=== PATIENT | male | born 1950 | race Caucasian/White ===

== ENCOUNTER 2017-01-11 23:50 | Inpatient (IN) | payer MEDICARE ==
[~2017-01-11] VITALS: Ht 189.2 cm; Wt 96.5 kg
[~2017-01-11 23:50] MED LIST: METO100T PO; ROBA750T3 PO; ULTR50TA PO
[2017-01-11 23:51] VITALS: BP_SYST 210; PULSE 160; RESP 18; TEMP 99.5; O2SAT 98
[2017-01-11 23:57] VITALS: PULSE 130; RESP 18; O2SAT 98
[2017-01-12] VITALS (17 sets, daily range): BP systolic 132–194; BP diastolic 62–169; PULSE 72–148; RESP 13–22; TEMP 98–98.6; O2SAT 95–99
[2017-01-12] MEDS ORDERED: TRAM50TA PO (00:08)
[2017-01-12] MEDS ORDERED: GABA600T PO (00:08)
[2017-01-12] MEDS ORDERED: DILTIAZEM INJ 125 MG in SODIUM CHLORIDE 0.9% INJ 100 ML IV SCH (00:15)
[2017-01-12] MEDS ORDERED: SODIUM CHLORIDE 0.9% FLUSH 10 ML FLUSH IVF PRN (00:15)
[2017-01-12] MEDS ORDERED: DILTIAZEM HCL 25 MG/5 ML VIAL IV ONE (00:15)
[2017-01-12] MEDS ORDERED: SODIUM CHLORID 0.9% 500 ML INJ 500 ML IV ONE (00:15)
[2017-01-12 00:44] LABS: AUTOMATED NEUTROPHIL # 7.3 TH/MM3 (1.8-7.7); BASOPHIL % 0.5 % (0.0-2.0); EOSINOPHIL # 0.1 TH/MM3 (0-0.4); EOSINOPHIL % 1.3 % (0.0-4.0); HEMATOCRIT 34.6 % (39.0-51.0); HEMO FLAGS DIFF FINAL; LYMPH % 9.3 % (9.0-44.0); LYMPHOCYTE # 0.8 TH/MM3 (1.0-4.8); MEAN CORPUSCULAR HEMOGLOBIN 21.6 PG (27.0-34.0); MEAN CORPUSCULAR HGB CONC 31.3 % (32.0-36.0); NEUT % 81.9 % (16.0-70.0); PLATELET COUNT 198 TH/MM3 (150-450); RED BLOOD COUNT 5.01 MIL/MM3 (4.50-5.90); RED CELL DISTRIBUTION WIDTH 22.4 % (11.6-17.2); WHITE BLOOD COUNT 8.9 TH/MM3 (4.0-11.0)
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
[2017-01-12 00:53] LABS: APTT (PATIENT) 39.4 SEC (24.3-30.1); INTERNATIONAL NORMALIZED RATIO 1.5 RATIO; PROTHROMBIN TIME - PATIENT 16.7 SEC (9.8-11.6)
[2017-01-12 00:54] LABS: ALT (GPT) 89 U/L (12-78); ANION GAP 11 MEQ/L (5-15); AST (GOT) 71 U/L (15-37); BICARBONATE 23.7 MEQ/L (21.0-32.0); BLOOD UREA NITROGEN 22 MG/DL (7-18); CHLORIDE 101 MEQ/L (98-107); GLOMERULAR FILTRATION RATE 35 ML/MIN (>89); MAGNESIUM 1.8 MG/DL (1.5-2.5); SODIUM (NA) 136 MEQ/L (136-145)
--- NOTE | 2017-01-12 01:03 | RADRPT ---
EXAM DATE/TIME: 01/12/2017 00:28 [facility] COMPARISON: CHEST SINGLE AP, April 17, 2013, 14:43. INDICATIONS : Shortness of breath, weakness for several days. MEDICAL HISTORY : None. SURGICAL HISTORY : None. ENCOUNTER: Initial ACUITY: 1 day PAIN SCORE: 0/10 LOCATION: Bilateral chest FINDINGS: Mild to moderate cardiomegaly present, worse on before. There is basilar predominant bilateral parenc hymal consolidation, some of which probably represents pulmonary edema. Superimposed pneumonia possib le, especially right base. No large effusion seen. No pneumothorax. CONCLUSION: Cardiomegaly with probably at least mild failure. Potentially superimposed pneumonia of the right bas e. Will Campbell MD on January 12, 2017 at 1:00 Board Certified Radiologist. This report was verified electronically.
[2017-01-12 01:04] LABS: ALKALINE PHOSPHATASE 73 U/L (45-117); CREATINE KINASE 127 U/L (39-308); TOTAL BILIRUBIN ADULT 0.8 MG/DL (0.2-1.0)
--- NOTE | 2017-01-12 01:09 | RADRPT ---
EXAM DATE/TIME: 01/12/2017 00:51 [facility] COMPARISON: CT BRAIN W/O CONTRAST, April 17, 2013, 14:10. INDICATIONS : Syncope RADIATION DOSE: 42.06 CTDIvol (mGy) MEDICAL HISTORY : Hypertension. SURGICAL HISTORY : None. ENCOUNTER: Initial ACUITY: 1 day PAIN SCALE: 0/10 LOCATION: cranial TECHNIQUE: Multiple contiguous axial images were obtained of the head. Using automated exposure control and adj ustment of the mA and/or kV according to patient size, radiation dose was kept as low as reasonably a chievable to obtain optimal diagnostic quality images. DICOM format image data is available electro nically for review and comparison. FINDINGS: CEREBRUM: The ventricles are normal for age. No evidence of midline shift, mass lesion, hemorrhage or acute in farction. No extra-axial fluid collections are seen. POSTERIOR FOSSA: The cerebellum and brainstem are intact. The 4th ventricle is midline. The cerebellopontine angle i s unremarkable. EXTRACRANIAL: The visualized portion of the orbits is intact. SKULL: The calvaria is intact. No evidence of skull fracture. CONCLUSION: No acute intracranial abnormality. Will Campbell MD on January 12, 2017 at 1:07 Board Certified Radiologist. This report was verified electronically.
[2017-01-12 01:16] LABS: CKMB 2.3 NG/ML (0.5-3.6)
[2017-01-12] MEDS ORDERED: AZITHROMYCIN INJ 500 MG in SODIUM CHLOR 0.9% 250 ML INJ 250 ML IV ONE (02:00)
[2017-01-12] MEDS ORDERED: cefTRIAXone INJ 1,000 MG in SODIUM CHLORIDE 0.9% INJ 100 ML IV ONE (02:00)
[2017-01-12] MEDS ORDERED: NALOXONE HCL 0.4 MG/ML AMP IV PRN (02:45)
[2017-01-12] MEDS ORDERED: FUROSEMIDE 40 MG/4 ML VIAL IV PUSH ONE ×2 (02:45)
[2017-01-12] MEDS ORDERED: LABETALOL HCL 100 MG/20 ML VIAL IV PUSH ONE (02:45)
[2017-01-12] MEDS ORDERED: NITROGLYCERIN 2% OINT 1 GM PACKET TOPICAL ONE (02:45)
[2017-01-12] MEDS ORDERED: SODIUM CHLORIDE 0.9% FLUSH 10 ML FLUSH IV FLUSH PRN (02:45)
[2017-01-12] MEDS: SODIUM CHLORIDE 0.9% FLUSH 10 ML FLUSH IV FLUSH SCH ×2 (07:51→21:19)
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
--- NOTE | 2017-01-12 09:34 | MB ---
cc: KELLIE PRESCOTT DATE OF 1950 DATE OF CONSULTATION January 12, 2017 REASON FOR CONSULTATION Atrial fibrillation with RVR. HISTORY OF PRESENT ILLNESS 66-year-old male with past medical history significant for hypertension, gout, neuropathy, sciatica who presented to the hospital for evaluation of two days of vague complaints of generalized weakness, lightheadedness and near-syncopal episode. The patient was found to be in atrial fibrillation with RVR. According to the patient, his diagnosis is new and he denies fevers, chills, nausea, vomiting, diarrhea, urinary symptoms, neurologic symptoms, alcohol usage. He does report having some shortness of breath with exertion for a couple of days; however, no palpitations. The patient was admitted to the Intensive Care Unit. He was started on a Cardizem drip. No anticoagulation was started, even patient refused and reports he cannot take blood thinners. REVIEW OF SYSTEMS Negative except for what is mentioned in the HPI. PAST MEDICAL HISTORY 1. Hypertension. 2. Gout. 3. Neuropathy. 4. Sciatica. 5. Chronic thigh pain. PAST SURGICAL HISTORY 1. Tonsillectomy. 2. Brain surgery. 3. Strabismus. SOCIAL HISTORY Denies alcohol, tobacco or illicit drug use. ALLERGIES No known drug allergies. HOME MEDICATIONS 1. Gabapentin 600 mg q.i.d. 1. Tramadol 50 mg p.o. q.6 h p.r.n. PHYSICAL EXAMINATION VITAL SIGNS: Temperature 98, heart rate 92, pulse 20, blood pressure 132/88, O2 sat 99% on room air. GENERAL: Awake, alert and oriented x 3, in no acute distress. NECK: No JVD, no carotid bruits. HEART: Irregularly irregular. No murmurs, rubs or gallops. LUNGS: Clear to auscultation bilaterally. ABDOMEN: Soft, nontender, nondistended with positive bowel sounds. EXTREMITIES: No cyanosis or edema. Pulses throughout. DATA CBC: Hemoglobin 10, hematocrit 34, platelet count 198. INR 1.5. Sodium 136, potassium 4.0, BUN 22, creatinine 1.93. Troponin 0.32. BNP 1403. TSH 1.7. Lipase 147. Microbiology: Blood cultures pending. CHEST X-RAY Cardiomegaly with a superimposed pneumonia on the right base. CT HEAD No acute intracranial abnormality. EKG Atrial fibrillation with LVH by voltage. Nonspecific ST changes. ASSESSMENT AND PLAN 66-year-old male presenting with vague complaints of generalized weakness and worsening dyspnea on exertion, found to be in atrial fibrillation with RVR. RVR has been controlled with a Cardizem drip. He remains hemodynamically stable with no active cardiac complaints. He is being worked up for infection and his renal function has deteriorated. Regarding his atrial fibrillation, his rate is better controlled now. At this I will try to wean off the Cardizem drip and start p.o. Cardizem. His CHADS-VASC score is 1 for which aspirin will be strongly recommended to decrease his risk of stroke. However, after a long conversation with the patient, the patient refuses to take blood thinners. He reports he has a low propensity to bleed. In regards to his mildly elevated troponins, it is most likely due to his acute kidney injury, thus no invasive ischemic workup will be recommended at this time. RECOMMENDATIONS 1. Wean Cardizem drip. 2. Start p.o. Cardizem . 3. Get a 2-D echocardiogram. 4. The patient refuses oral chronic anticoagulation. Thank you for the opportunity to take part in the care of this patient. MD TONYA Pathak/IRINA /9:02 AM /9:24 AM MTDShivam
[2017-01-12] MEDS: METOPROLOL TARTRATE 50 MG TAB PO SCH ×2 (09:36→21:19)
[2017-01-12] MEDS: DILTIAZEM HCL 30 MG TAB PO SCH ×4 (09:36→21:18)
[2017-01-12] MEDS: traMADol HCL 50 MG TAB PO SCH ×3 (09:37→21:19)
[2017-01-12] MEDS: GABAPENTIN 300 MG CAP PO SCH ×3 (09:37→18:00)
--- NOTE | 2017-01-12 09:45 | RADRPT ---
EXAM DATE/TIME: 01/12/2017 09:06 [facility] COMPARISON: No previous studies available for comparison. INDICATIONS : Increased BUN/Creatinine. MEDICAL HISTORY : Hypertension. Deep venous thrombosis. Gout. SURGICAL HISTORY : Tonsillectomy. ENCOUNTER: Initial ACUITY: 1 day PAIN SCORE: 3/10 LOCATION: Bilateral flank MEASUREMENTS: RIGHT KIDNEY: 11.9 x 6.4 x 5.9 cm LEFT KIDNEY: 12.3 x 6.5 x 5.4 cm FINDINGS: RIGHT KIDNEY: There is a 6 mm echogenic focus in the upper pole the right kidney which could be a small nonobstruct ing stone. There multiple small cysts present. No evidence of hydronephrosis. Cortical thickness and echogenicity is otherwise within normal limits throughout. LEFT KIDNEY: Multiple cysts are present, largest a 5 cm cyst arising in the lateral lower pole. No evidence of hyd ronephrosis. Normal cortical thickness and echogenicity otherwise present. BLADDER: Moderate enlargement of the prostate with impression on the bladder base. No definite bladder wall th ickening CONCLUSION: No hydronephrosis. Will Duval MD on January 12, 2017 at 9:41 Board Certified Radiologist. This report was verified electronically.
--- NOTE | 2017-01-12 09:54 | EKG ---
Date Performed: 01/11/2017 Time Performed: 23:58:38 PTAGE: 66 years EKG: ATRIAL FIBRILLATION WITH RAPID VENTRICULAR RESPONSE LVH with repolarization changes Atrial fibrillation is new from the prior tracing. Abnormal ECG PREVIOUS TRACING 04/17/2003 13.57.26 DOCTOR: Nash Harris Interpretating Date/Time 01/12/2017 09:49:45
--- NOTE | 2017-01-12 09:57 | EKG ---
Date Performed: 01/12/2017 Time Performed: 06:47:09 PTAGE: 66 years EKG: ATRIAL FIBRILLATION with controlled ventricular rate LVH with repolarization abnormality Ve ntricular rate is better controlled since prior tracing. ABNORMAL ECG PREVIOUS TRACING : 04/17/2013 13.57 DOCTOR: Nash Harris Interpretating Date/Time 01/12/2017 09:51:28
--- NOTE | 2017-01-12 16:03 | ECHRPT ---
Indication: HEART FAILURE CONCLUSIONS There is a global LV dysfunction with an EF of 30%. The left atrial size is moderately dilated. Moderate mitral valve regurgitation. Moderate tricuspid regurgitation. There is estimated moderate pulmonary hypertension present (range 50-60 mmHg). BP: 139 / 89 HR: 89 Rhythm: Sinus MEASUREMENTS (Male / Female) Normal Values Technical Quality:Fair 2D ECHO LV Diastolic Diameter PLAX 5.2 cm 4.2 - 5.9 / 3.9 - 5.3 cm LV Systolic Diameter PLAX 4.5 cm IVS Diastolic Thickness 1.3 cm 0.6 - 1.0 / 0.6 - 0.9 cm LVPW Diastolic Thickness 1.3 cm 0.6 - 1.0 / 0.6 - 0.9 cm LV Relative Wall Thickness 0.5 LVOT Diameter 2.2 cm Aortic Root Diameter 3.5 cm LA Systolic Diameter LX 5.1 cm 3.0 - 4.0 / 2.7 - 3.8 cm LA Volume Index 68.5 cm/m 16 - 28 cm/m M-MODE AV Cusp Separation MM 2.1 cm DOPPLER AV Peak Velocity 107.7 cm/s AV Peak Gradient 4.6 mmHg AV Mean Gradient 2.7 mmHg AV Velocity Time Integral 18.3 cm LVOT Peak Velocity 58.6 cm/s LVOT Peak Gradient 1.4 mmHg LVOT Velocity Time Integral 9.4 cm LVOT Cardiac Index 1414.0 cm/minm AV Area Cont Eq vti 2.0 cm AV Area Cont Eq pk 2.1 cm Mitral E Point Velocity 99.1 cm/s LV E' Lateral Velocity 9.0 cm/s Mitral E to LV E' Lateral Ratio 11.0 LV E' Septal Velocity 4.8 cm/s Mitral E to LV E' Septal Ratio 20.7 TR Peak Velocity 323.0 cm/s TR Peak Gradient 41.7 mmHg PV Peak Velocity 32.1 cm/s PV Peak Gradient 0.4 mmHg FINDINGS LEFT VENTRICLE There are findings consistent with hypertrophic cardiomyopathy. There is a global LV dysfunction wit h an EF of 30 to 40%. There is mild to moderate LVH. This study was not technically sufficient to allow f or evaluation of left ventricular diastolic function. LEFT ATRIUM The left atrial size is moderately dilated. Bi-Plane LA measurements 68 ml/m2 MITRAL VALVE Structurally normal mitral valve. Moderate mitral valve regurgitation. AORTIC VALVE Aortic valve sclerosis is present. Trace aortic valve regurgitation. No aortic valve stenosis. TRICUSPID VALVE Structurally normal tricuspid valve. There is moderate tricuspid regurgitation. There is estimated moderate pulmonary hypertension present (range 50-60 mmHg). c Donis Agrawal MD (Electronically Signed) Final Date:12 January 2017 16:01
[2017-01-13] VITALS (11 sets, daily range): BP systolic 127–144; BP diastolic 69–102; PULSE 84–112; RESP 16–21; TEMP 98.2–100; O2SAT 96–99
[2017-01-13] MEDS: traMADol HCL 50 MG TAB PO SCH ×4 (03:48→22:11)
[2017-01-13 06:31] LABS: POTASSIUM 4.6 MEQ/L (3.5-5.1)
[2017-01-13 06:45] LABS: AUTOMATED NEUTROPHIL # 5.9 TH/MM3 (1.8-7.7); BASOPHIL % 0.5 % (0.0-2.0); EOSINOPHIL # 0.3 TH/MM3 (0-0.4); EOSINOPHIL % 4.1 % (0.0-4.0); HEMATOCRIT 31.8 % (39.0-51.0); LYMPH % 15.6 % (9.0-44.0); LYMPHOCYTE # 1.3 TH/MM3 (1.0-4.8); MEAN CELL VOLUME 68.1 FL (80.0-100.0); MEAN CORPUSCULAR HGB CONC 30.8 % (32.0-36.0); MONO % 7.8 % (0.0-8.0); PLATELET COUNT 161 TH/MM3 (150-450); RED BLOOD COUNT 4.67 MIL/MM3 (4.50-5.90); RED CELL DISTRIBUTION WIDTH 22.4 % (11.6-17.2); WHITE BLOOD COUNT 8.1 TH/MM3 (4.0-11.0)
[2017-01-13 07:23] LABS: HEMO FLAGS AUTO DIFF
[2017-01-13 07:39] LABS: PLATELET ESTIMATE SMEAR NORMAL (NORMAL); PLATELET MORPHOLOGY ENLARGED (NORMAL); SCAN/DIFF AUTO DIFF CONFIRMED
[2017-01-13] MEDS: GABAPENTIN 300 MG CAP PO SCH ×3 (08:36→18:00)
[2017-01-13] MEDS: DILTIAZEM HCL 30 MG TAB PO SCH ×4 (08:36→22:11)
[2017-01-13] MEDS: METOPROLOL TARTRATE 50 MG TAB PO SCH (08:37)
[2017-01-13] MEDS: SODIUM CHLORIDE 0.9% FLUSH 10 ML FLUSH IV FLUSH SCH ×2 (08:37→22:12)
--- NOTE | 2017-01-13 09:12 | HHI.PR ---
Subjective Remarks Follow-up for atrial fibrillation with RVR Patient heart rate has been control at that this morning when it went up to the 120s. He is getting his medication soon. Patient denied any fatigue, chest pain, shortness of breathing, palpitation or lightheadedness or dizziness. Patient is asking about being on digoxin. Otherwise he has no other complaints. His nurse is at the bedside. Objective Vitals Vital Signs Date Time Temp Pulse Resp B/P Pulse Ox O2 Delivery O2 Flow Rate FiO2 01/13/17 08:52 98 Nasal Cannula 2.00 01/13/17 06:00 112 01/13/17 04:00 107 01/13/17 04:00 98.4 107 19 144/76 98 01/13/17 02:00 96 01/13/17 00:00 84 01/12/17 22:00 105 01/12/17 20:00 93 01/12/17 20:00 98.2 93 16 144/88 99 01/12/17 19:59 95 Nasal Cannula 2.00 01/12/17 18:53 89 01/12/17 16:00 98.0 79 20 136/89 99 01/12/17 16:00 72 01/12/17 14:45 98 01/12/17 14:00 89 01/12/17 12:00 89 01/12/17 12:00 98.6 92 20 137/62 99 01/12/17 10:00 89 I/O 01/12/17 01/12/17 01/12/17 01/13/17 01/13/17 01/13/17 07:00 15:00 23:00 07:00 15:00 23:00 Intake Total 147 ml 620 ml 300 ml 240 ml Output Total 300 ml 500 ml 400 ml 100 ml Balance -153 ml 120 ml -100 ml 140 ml Intake Oral 100 ml 600 ml 300 ml 240 ml IV Total 47 ml 20 ml Output Urine Total 300 ml 500 ml 400 ml 100 ml # Bowel Movements 0 0 2 1 Result Diagram: 01/13/1744201/13/17442 Objective Remarks GENERAL: in NAD CARDIOVASCULAR: Irregular rate and irregular rhythm without murmurs, gallops, or rubs. RESPIRATORY: Breath sounds equal bilaterally. No accessory muscle use. GASTROINTESTINAL: Abdomen soft, non-tender, nondistended. MUSCULOSKELETAL: No cyanosis, or edema. BACK: Nontender without obvious deformity. No CVA tenderness. Medications and IVs Current Medications Sodium Chloride 500 ml @ 500 mls/hr BOLUS ONCE IV Last administered on 00:45; Start 01/12/17 at 00:15; Stop 01/12/17 at 01:14; Status DC Diltiazem HCl/ Sodium Chloride (Cardizem Inj/NS Inj) 125 ml @ 0 mls/hr TITRATE IV Last administered on 01/12/17 01:23; Start 01/12/17 at 00:15 Sodium Chloride (NS Flush) 2 ml UNSCH PRN IVF FLUSH AFTER USING IV ACCESS; Start 01/12/17 at 00:15; Stop 01/12/17 at 02:43; Status DC Diltiazem HCl 20 mg 20 mg ONCE ONCE IV Last administered on 01/12/17 00:46; Start 01/12/17 at 00:15; Stop 01/12/17 at 00:20; Status DC Ceftriaxone Sodium 1000 mg/ Sodium Chloride 100 ml @ 200 mls/hr ONCE ONCE IV Last administered on 01/12/17 02:26; Start 01/12/17 at 02:00; Stop 01/12/17 at 02:29; Status DC Azithromycin/ Sodium Chloride (Zithromax Inj/ NS 250 ml Inj) 250 ml @ 250 mls/ hr ONCE ONCE IV Last administered on 01/12/17 02:54; Start 01/12/17 at 02:00 ; Stop 01/12/17 at 02:59; Status DC Labetalol HCl (Trandate Inj) 5 mg ONCE ONCE IV PUSH Last administered on 02:55; Start 01/12/17 at 02:45; Stop 01/12/17 at 02:46; Status DC Furosemide (Lasix Inj) 40 mg ONCE ONCE IV PUSH Last administered on 01/12/17 02:54; Start 01/12/17 at 02:45; Stop 01/12/17 at 02:46; Status DC Nitroglycerin (Nitroglycerin 2% Oint) 1 inch ONCE ONCE TOPICAL Last administered on 01/12/17 02:55; Start 01/12/17 at 02:45; Stop 01/12/17 at 02:46 ; Status DC Sodium Chloride (NS Flush) 2 ml UNSCH PRN IV FLUSH FLUSH AFTER USING IV ACCESS ; Start 01/12/17 at 02:45 Sodium Chloride (NS Flush) 2 ml BID IV FLUSH Last administered on 01/13/17 08: 37; Start 01/12/17 at 09:00 Naloxone HCl (Narcan Inj) 0.4 mg UNSCH PRN IV SEE LABEL COMMENTS; Start at 02:45 Furosemide (Lasix Inj) 40 mg ONCE ONCE IV PUSH ; Start 01/12/17 at 02:45; Stop 01/12/17 at 02:46; Status DC Metoprolol Tartrate (Lopressor) 50 mg Q12HR PO Last administered on 01/13/17 08:37; Start 01/12/17 at 09:00 Diltiazem HCl (Cardizem) 30 mg QID PO Last administered on 01/13/17 08:36; Start 01/12/17 at 09:00 Tramadol HCl (Ultram) 50 mg Q6H PO Last administered on 01/13/17 08:36; Start 01/12/17 at 10:00 Gabapentin (Neurontin) 600 mg TID PO Last administered on 01/13/17 08:36; Start 01/12/17 at 09:15 A/P Assessment and Plan 66-year-old male past medical history of hypertension, hyperlipidemia type I, peripheral neuropathy, and noncompliance who presented with fatigue due to atrial fibrillation with RVR Atrial fibrillation with RVR -New-onset. Patient does not report any history of atrial fibrillation but he is a poor historian. Only symptom is fatigue. -Labs and imaging reviewed significant for mild failure, elevated BNP, and mild elevated troponin 0.3 to. TSH WNL. -Echo showed global left ventricular dysfunction with ejection fraction of 30%, moderate mitral/tricuspid valve regurgitation, moderate pulmonary hypertension. --s/p cardizem gtt. patient was put on Cardizem by newscast director. He is also on metoprolol. Continue management per newscast director. -Patient refused any aspirin or anticoagulation due to a questionable bleeding disorder. His INR is 1.5. Cardiomyopathy/systolic heart failure with ejection fraction of 30%/pulmonary hypertension -Management per newscast director. -Looks like patient has chronic kidney disease. May consider adding an ARB pending recommendations from newscast director. Renal insufficiency -Unsure if this is acute, chronic, or acute on chronic. There is no baseline for comparison. -Today creatinine has been stable. Most likely this is chronic renal disease. -Renal ultrasound is negative for any acute disease process. -Strict ins and outs. Continue to monitor. -Avoid nephrotoxins. Peripheral neuropathy/chronic sciatica pain -Continue home medication tramadol and gabapentin. Hypertension, uncontrolled -Patient is noncompliant medication. -He is on metoprolol at home. Continue metoprolol. Mild elevated LFTs -Pending LFTs today. Since patient's INR is 1.5. We will get a liver ultrasound. DVT prophylaxis -SCDs. Discharge Planning There are no beds available in the [facility]. Patient can be transferred to Med/Surg with telemetry since he is off the Cardizem drip. d/w patient's nurse at bedside. Stacy Jones MD Jan 13, 2017 09:12
[2017-01-13 10:28] LABS: INDIRECT BILIRUBIN 0.2 MG/DL (0.0-0.8); TOTAL BILIRUBIN ADULT 0.4 MG/DL (0.2-1.0)
[2017-01-13] MEDS: RAMIPRIL 1.25 MG CAP PO SCH (10:45)
--- NOTE | 2017-01-13 10:47 | PD.CARD.PN ---
Subjective Subjective Remarks off cardizem still on afib, rate controlled no cv complaints decrease lv systolic function on echo Objective Medications Current Medications Medications (Trade) Dose Ordered Sig/Royce Route Start Time Stop Time Status Last Admin (Cardizem Inj/NS Inj) 125 ml @ 0 mls/hr TITRATE IV 01/12/17 00:15 01/12/17 01:23 (NS Flush) 2 ml UNSCH PRN IV FLUSH 01/12/17 02:45 (NS Flush) 2 ml BID IV FLUSH 01/12/17 09:00 01/13/17 08:37 (Narcan Inj) 0.4 mg UNSCH PRN IV 01/12/17 02:45 (Lopressor) 50 mg Q12HR PO 01/12/17 09:00 01/13/17 08:37 (Cardizem) 30 mg QID PO 01/12/17 09:00 01/13/17 08:36 (Ultram) 50 mg Q6H PO 01/12/17 10:00 01/13/17 08:36 (Neurontin) 600 mg TID PO 01/12/17 09:15 01/13/17 08:36 Vital Signs / I&O Vital Signs Date Time Temp Pulse Resp B/P Pulse Ox O2 Delivery O2 Flow Rate FiO2 01/13/17 09:36 20 01/13/17 08:52 98 Nasal Cannula 2.00 01/13/17 06:00 112 01/13/17 04:00 107 01/13/17 04:00 98.4 107 19 144/76 98 01/13/17 02:00 96 01/13/17 00:00 84 01/12/17 22:00 105 01/12/17 20:00 93 01/12/17 20:00 98.2 93 16 144/88 99 01/12/17 19:59 95 Nasal Cannula 2.00 01/12/17 18:53 89 01/12/17 16:00 98.0 79 20 136/89 99 01/12/17 16:00 72 01/12/17 14:45 98 01/12/17 14:00 89 01/12/17 12:00 89 01/12/17 12:00 98.6 92 20 137/62 99 I/O 01/12/17 01/12/17 01/12/17 01/13/1701/13/17 7/12/17 07:00 15:00 23:00 07:00 15:00 23:00 Intake Total 147 ml 620 ml 300 ml 240 ml Output Total 300 ml 500 ml 400 ml 100 ml Balance -153 ml 120 ml -100 ml 140 ml Intake Oral 100 ml 600 ml 300 ml 240 ml IV Total 47 ml 20 ml Output Urine Total 300 ml 500 ml 400 ml 100 ml # Bowel Movements 0 0 2 1 Physical Exam GENERAL: Well-nourished, well-developed patient. SKIN: Warm and dry. HEAD: Normocephalic. EYES: No scleral icterus. No injection or drainage. NECK: Supple, trachea midline. No JVD or lymphadenopathy. CARDIOVASCULAR:Irr Irr without murmurs, gallops, or rubs. RESPIRATORY: Breath sounds equal bilaterally. No accessory muscle use. GASTROINTESTINAL: Abdomen soft, non-tender, nondistended. EXTREMITIES: No cyanosis, or edema. NEUROLOGICAL: Awake, alert, and oriented x 3. Non-focal. Laboratory Laboratory Tests Test 01/12/17 01/13/17 13:26 04:43 Total Creatine Kinase 157 U/L Troponin I 0.27 NG/ML White Blood Count 8.1 TH/MM3 Red Blood Count 4.67 MIL/MM3 Hemoglobin 9.8 GM/DL Hematocrit 31.8 % Mean Corpuscular Volume 68.1 FL Mean Corpuscular Hemoglobin 21.0 PG Mean Corpuscular Hemoglobin 30.8 % Concent Red Cell Distribution Width 22.4 % Platelet Count 161 TH/MM3 Mean Platelet Volume 10.6 FL Neutrophils (%) (Auto) 72.0 % Lymphocytes (%) (Auto) 15.6 % Monocytes (%) (Auto) 7.8 % Eosinophils (%) (Auto) 4.1 % Basophils (%) (Auto) 0.5 % Neutrophils # (Auto) 5.9 TH/MM3 Lymphocytes # (Auto) 1.3 TH/MM3 Monocytes # (Auto) 0.6 TH/MM3 Eosinophils # (Auto) 0.3 TH/MM3 Basophils # (Auto) 0.0 TH/MM3 CBC Comment AUTO DIFF Differential Comment AUTO DIFF CONFIRMED Platelet Estimate NORMAL Platelet Morphology Comment ENLARGED Hematology Comments Sodium Level 133 MEQ/L Potassium Level 4.6 MEQ/L Chloride Level 102 MEQ/L Carbon Dioxide Level 21.0 MEQ/L Anion Gap 10 MEQ/L Blood Urea Nitrogen 27 MG/DL Creatinine 1.83 MG/DL Estimat Glomerular Filtration 37 ML/MIN Rate Random Glucose 115 MG/DL Calcium Level 8.4 MG/DL Total Bilirubin 0.4 MG/DL Direct Bilirubin 0.2 MG/DL Indirect Bilirubin 0.2 MG/DL Aspartate Amino Transf 53 U/L (AST/SGOT) Alanine Aminotransferase 75 U/L (ALT/SGPT) Alkaline Phosphatase 64 U/L Total Protein 6.9 GM/DL Albumin 2.6 GM/DL Imaging Last Impressions Head CT 01/12/1712 Signed Impressions: Service Date/Time: Thursday, January 12, 2017 00:51 - CONCLUSION: No acute intracranial abnormality. Will Campbell MD Chest X-Ray 01/12/1712 Signed Impressions: Service Date/Time: Thursday, January 12, 2017 00:28 - CONCLUSION: Cardiomegaly with probably at least mild failure. Potentially superimposed pneumonia of the right base. Will Campbell MD Renal Ultrasound 01/12/17 0000 Signed Impressions: Service Date/Time: Thursday, January 12, 2017 09:06 - CONCLUSION: No hydronephrosis. Will Duval MD Assessment and Plan Problem List: (1) New onset of congestive heart failure Assessment and Plan: very difficult patient. patient refuses OAC or ischemic cardiac work up. Severe depressed LV systolic function on TTE. Recommendations; 1. Start ASA 81mg PO daily 2. Increase Lopressor to 100mg PO daily 3. Start Lasix 20mg IV BID 4. Start Altace 1.25mg PO daily 5. Encourage out of bed and incentive spirometry 6. OK to tx to [facility] 7. Strict I&O 8. Daily weights 9. Low salt diet (2) Elevated troponin (3) Atrial fibrillation with RVR Donis Agrawal MD Jan 13, 2017 10:47
--- NOTE | 2017-01-13 16:52 | RADRPT ---
EXAM DATE/TIME: 01/13/2017 15:15 [place] COMPARISON: No previous studies available for comparison. INDICATIONS : Increased lab values. MEDICAL HISTORY : Hypertension. Gout. Chronic thigh pain. SURGICAL HISTORY : Tonsillectomy. ENCOUNTER: Initial ACUITY: 2 days PAIN SCORE: 0/10 LOCATION: Bilateral upper quadrant MEASUREMENTS: LIVER: 21.1 cm length COMMON DUCT: 4 mm RIGHT KIDNEY: 9.3 x 6.0 x 5.3 cm SPLEEN: 14.1 cm length FINDINGS: The gallbladder is intact without any evidence for gallstones, gallbladder wall thickening, or perich olecystic fluid. The visualized head of the pancreas, and right kidney appear grossly intact for derek hnique. The spleen is slightly enlarged without focal lesions for technique. The liver is slightly ec hogenic which maybe due to fatty infiltration and or hepatocellular dysfunction. Approximate 1 cm sto ne is present in the upper pole of the right kidney with 2.4 cm simple cyst in the upper pole of the right kidney. In the region of the head of the pancreas there is a questionable mass measures 2.6 cm in size could be a lymph node. Small right pleural effusion is seen. CONCLUSION: 1. The liver is slightly echogenic which maybe due to fatty infiltration and or hepatocellular dysfun ction. 2. Small right pleural effusion. 3. Small nonobstructing stone in the right kidney and right renal cyst. 4. Slight splenomegaly. 5. Possible mass versus lymph node in the region of the head of the pancreas. Jade Roman MD on January 13, 2017 at 16:47 Board Certified Radiologist. This report was verified electronically.
--- NOTE | 2017-01-13 17:13 | EKG ---
Date Performed: 01/12/2017 Time Performed: 11:52:00 PTAGE: 66 years EKG: ATRIAL FIBRILLATION MODERATE INTRAVENTRICULAR CONDUCTION DELAY ST DEVIATION AND MODERATE T- WAVE ABNORMALITY ABNORMAL ECG PREVIOUS TRACING : 01/12/2017 06.47 Compared to prior tracing no significant change DOCTOR: Kyle Steel Interpretating Date/Time 01/13/2017 17:12:15
[2017-01-13] MEDS: FUROSEMIDE 20 MG/2 ML VIAL IV PUSH SCH (18:00)
[2017-01-13] MEDS: METOPROLOL TARTRATE 100 MG TAB PO SCH (22:11)
[2017-01-14] VITALS (12 sets, daily range): BP systolic 125–145; BP diastolic 59–98; PULSE 20–113; RESP 11–30; TEMP 98.1–99.8; O2SAT 68–96
[2017-01-14] MEDS: traMADol HCL 50 MG TAB PO SCH ×4 (04:35→21:29)
[2017-01-14 06:36] LABS: HEMATOCRIT 29.3 % (39.0-51.0); MEAN CELL VOLUME 68.1 FL (80.0-100.0); MEAN CORPUSCULAR HEMOGLOBIN 21.6 PG (27.0-34.0); MEAN CORPUSCULAR HGB CONC 31.8 % (32.0-36.0); PLATELET COUNT 185 TH/MM3 (150-450); RED CELL DISTRIBUTION WIDTH 22.7 % (11.6-17.2); REVIEW FLAG FINAL; WHITE BLOOD COUNT 6.5 TH/MM3 (4.0-11.0)
[2017-01-14 07:07] LABS: BICARBONATE 24.3 MEQ/L (21.0-32.0); POTASSIUM 3.6 MEQ/L (3.5-5.1)
[2017-01-14] MEDS: FUROSEMIDE 20 MG/2 ML VIAL IV PUSH SCH ×2 (08:23→18:00)
[2017-01-14] MEDS: RAMIPRIL 1.25 MG CAP PO SCH (08:23)
[2017-01-14] MEDS: GABAPENTIN 300 MG CAP PO SCH ×3 (08:23→21:29)
[2017-01-14] MEDS: METOPROLOL TARTRATE 100 MG TAB PO SCH ×2 (08:23→21:29)
[2017-01-14] MEDS: DILTIAZEM HCL 30 MG TAB PO SCH ×4 (08:23→21:29)
[2017-01-14] MEDS ORDERED: ASPIRIN EC 81 MG TABEC PO SCH (09:00)
[2017-01-14] MEDS: SODIUM CHLORIDE 0.9% FLUSH 10 ML FLUSH IV FLUSH SCH ×2 (09:00→21:29)
--- NOTE | 2017-01-14 10:02 | HHI.PR ---
Subjective Remarks Follow-up for atrial fibrillation with RVR. Patient seen and examined today, at bedside. Spoke at length with patient and regarding medical history. Denies any new acute complaints. Continued chronic nerve pain. Rate controlled on monitor, continued a fib. Tolerating PO intake, denies any abdominal pain, n/v. Denies any fever, chills, cough, chest pain, lightheadedness. Objective Vitals Vital Signs Date Time Temp Pulse Resp B/P Pulse Ox O2 Delivery O2 Flow Rate FiO2 01/14/17 06:00 85 01/14/17 04:00 99.1 99 11 143/94 91 01/14/17 04:00 99 01/14/17 02:00 94 01/14/17 00:00 98.1 86 30 137/59 96 01/14/17 00:00 86 01/13/17 22:00 97 01/13/17 20:00 100 01/13/17 20:00 100.0 100 21 141/102 96 01/13/17 18:00 112 01/13/17 16:00 107 01/13/17 16:00 98.2 93 16 127/69 99 01/13/17 12:00 98.4 107 18 130/72 98 01/13/17 12:00 112 I/O 01/13/17 01/13/17 01/13/17 01/14/17 01/14/17 01/14/17 07:00 15:00 23:00 07:00 15:00 23:00 Intake Total 240 ml 460 ml 500 ml Output Total 100 ml 400 ml 200 ml Balance 140 ml 60 ml 300 ml Intake Oral 240 ml 460 ml 500 ml Output Urine Total 100 ml 400 ml 200 ml # Bowel Movements 1 Result Diagram: 01/14/17 0541 01/14/17 0541 Imaging Last Impressions Liver Ultrasound 01/13/17 0000 Signed Impressions: Service Date/Time: Friday, January 13, 2017 15:15 - CONCLUSION: 1. The liver is slightly echogenic which maybe due to fatty infiltration and or hepatocellular dysfunction. 2. Small right pleural effusion. 3. Small nonobstructing stone in the right kidney and right renal cyst. 4. Slight splenomegaly. 5. Possible mass versus lymph node in the region of the head of the pancreas. Jade Roman MD Head CT 01/12/1712 Signed Impressions: Service Date/Time: Thursday, January 12, 2017 00:51 - CONCLUSION: No acute intracranial abnormality. Will Campbell MD Chest X-Ray 01/12/1712 Signed Impressions: Service Date/Time: Thursday, January 12, 2017 00:28 - CONCLUSION: Cardiomegaly with probably at least mild failure. Potentially superimposed pneumonia of the right base. Will Campbell MD Renal Ultrasound 01/12/17 0000 Signed Impressions: Service Date/Time: Thursday, January 12, 2017 09:06 - CONCLUSION: No hydronephrosis. Will Duval MD Objective Remarks GENERAL: Well-nourished, well-developed patient in NAD. at bedside. SKIN: Warm and dry. No rash. HEENT: Normocephalic. Atraumatic. Pupils equal and round. No scleral icterus. No injection or drainage. No nasal bleeding or discharge. Mucous membranes pink and moist. NECK: Supple. Trachea midline. CARDIOVASCULAR: Irregularly irregular rhythm. No murmur appreciated. RESPIRATORY: No accessory muscle use. Clear to auscultation. Breath sounds equal bilaterally. GASTROINTESTINAL: Abdomen soft, non-tender, nondistended. Normoactive bowel sounds x4. MUSCULOSKELETAL: No obvious deformities. Extremities without clubbing, cyanosis , or edema. NEUROLOGICAL: Awake and alert. No obvious cranial nerve deficits. Motor grossly within normal limits. 5/5 muscle strength in bilateral upper and lower extremities. Normal speech. PSYCHIATRIC: Appropriate mood and affect; insight and judgment normal. A/P Assessment and Plan 66-year-old male past medical history of hypertension, hyperlipidemia type I, peripheral neuropathy, and noncompliance who presented with fatigue due to atrial fibrillation with RVR Atrial fibrillation with RVR -New-onset. Patient does not report any history of atrial fibrillation but he is a poor historian. Only symptom is fatigue. -Labs and imaging reviewed significant for mild failure, elevated BNP, and mild elevated troponin 0.3 to. TSH WNL. -Echo showed global left ventricular dysfunction with ejection fraction of 30 %, moderate mitral/tricuspid valve regurgitation, moderate pulmonary hypertension. --s/p cardizem gtt per cardiology. Off Cardizem drip now, now on oral. He is also on metoprolol. Continue management per vacuum cleaner mechanic. -Patient refused any aspirin or anticoagulation due to a questionable bleeding disorder. His INR is 1.5. Cardiomyopathy/systolic heart failure with ejection fraction of 30%/pulmonary hypertension -Management per vacuum cleaner mechanic. - Start Altace 1.25 mg PO daily and Lasix 20 mg IV BID per cardiology. Renal insufficiency -Unsure if this is acute, chronic, or acute on chronic. There is no baseline for comparison. -Creatinine has been stable. Most likely this is chronic renal disease. -Renal ultrasound is negative for any acute disease process. -Strict ins and outs. Continue to monitor. -Avoid nephrotoxins. Peripheral neuropathy/chronic sciatica pain -Continue home medication tramadol and gabapentin. Hypertension, uncontrolled -Patient is noncompliant medication. -He is on metoprolol at home. Increase metoprolol 100 mg PO daily per cardiology. Mild elevated LFTs -LFTs reviewed, unremarkable except for mild elevation of AST. Ultrasound of liver reviewed and showing, the liver is slightly echogenic which maybe due to fatty infiltration and or hepatocellular dysfunction. Small right pleural effusion. Small nonobstructing stone in the right kidney and right renal cyst. Slight splenomegaly. Possible mass versus lymph node in the region of the head of the pancreas. - Recommend CT ab/pelvis for pancreatic mass. Follow. DVT prophylaxis: SCDs. Discharge Planning Awaiting bed availability on med/surge floor. Attending Statement Attestation Patient seen and examined with DAYSI Alexander. The exam, history, and the medical decision-making described in the above note were completed with the assistance of the dictating practitioner. I attest that I had a [id number] encounter with the patient on the same day, and personally performed all of the history, exam, or medical decision making. Discussed case with her thoroughly after seeing the patient, reviewed and agreed with the plan. Please see addendum in History, Physical examination. See below for any errata/additional input: Patient still in atrial fibrillation but denies any palpitation, heart rate in the 110s. No nausea or vomiting. He agreed to CT scan of the abdomen, no previous known pancreatic mass. Not in distress Irregular rhythm, borderline tachycardic Clear breath sounds No edema Per cardiology, increase metoprolol to 100 mg twice a day. With mildly elevated LFTs and ultrasound showing questionable pancreatic mass, check CT scan of the abdomen. Ejection fraction 30%, continue Lasix and Altace. Recheck BMP tomorrow, transfer to [facility] Abbie Coburn Jan 14, 2017 10:02 Charly Kuo MD Jan 14, 2017 16:22
--- NOTE | 2017-01-14 13:53 | PD.CARD.PN ---
Subjective Subjective Remarks no overnight events Objective Medications Current Medications Medications (Trade) Dose Ordered Sig/Royce Route Start Time Stop Time Status Last Admin (Cardizem Inj/NS Inj) 125 ml @ 0 mls/hr TITRATE IV 01/12/17 00:15 01/12/17 01:23 (NS Flush) 2 ml UNSCH PRN IV FLUSH 01/12/17 02:45 (NS Flush) 2 ml BID IV FLUSH 01/12/17 09:00 01/13/17 22:12 (Narcan Inj) 0.4 mg UNSCH PRN IV 01/12/17 02:45 (Cardizem) 30 mg QID PO 01/12/17 09:00 01/14/17 08:23 (Ultram) 50 mg Q6H PO 01/12/17 10:00 01/14/17 10:00 (Neurontin) 600 mg TID PO 01/12/17 09:15 01/14/17 08:23 (Lopressor) 100 mg Q12HR PO 01/13/17 21:00 01/14/17 08:23 (Lasix Inj) 20 mg BID@09,18 IV PUSH 01/13/17 18:00 01/14/17 08:23 (Altace) 1.25 mg DAILY PO 01/13/17 10:45 01/14/17 08:23 Vital Signs / I&O Vital Signs Date Time Temp Pulse Resp B/P Pulse Ox O2 Delivery O2 Flow Rate FiO2 01/14/17 06:00 85 01/14/17 04:00 99.1 99 11 143/94 91 01/14/17 04:00 99 01/14/17 02:00 94 01/14/17 00:00 98.1 86 30 137/59 96 01/14/17 00:00 86 01/13/17 22:00 97 01/13/17 20:00 100 01/13/17 20:00 100.0 100 21 141/102 96 01/13/17 18:00 112 01/13/17 16:00 107 01/13/17 16:00 98.2 93 16 127/69 99 I/O 01/13/17 01/13/17 01/13/17 01/14/17 01/14/17 01/14/17 07:00 15:00 23:00 07:00 15:00 23:00 Intake Total 240 ml 460 ml 500 ml Output Total 100 ml 400 ml 200 ml Balance 140 ml 60 ml 300 ml Intake Oral 240 ml 460 ml 500 ml Output Urine Total 100 ml 400 ml 200 ml # Bowel Movements 1 Physical Exam GENERAL: Well-nourished, well-developed patient. SKIN: Warm and dry. HEAD: Normocephalic. EYES: No scleral icterus. No injection or drainage. NECK: Supple, trachea midline. No JVD or lymphadenopathy. CARDIOVASCULAR:Irr Irr without murmurs, gallops, or rubs. RESPIRATORY: Breath sounds equal bilaterally. No accessory muscle use. GASTROINTESTINAL: Abdomen soft, non-tender, nondistended. EXTREMITIES: No cyanosis, or edema. NEUROLOGICAL: Awake, alert, and oriented x 3. Non-focal. Laboratory Laboratory Tests Test 01/14/17 05:41 White Blood Count 6.5 TH/MM3 Red Blood Count 4.30 MIL/MM3 Hemoglobin 9.3 GM/DL Hematocrit 29.3 % Mean Corpuscular Volume 68.1 FL Mean Corpuscular Hemoglobin 21.6 PG Mean Corpuscular Hemoglobin 31.8 % Concent Red Cell Distribution Width 22.7 % Platelet Count 185 TH/MM3 Mean Platelet Volume 10.0 FL Sodium Level 135 MEQ/L Potassium Level 3.6 MEQ/L Chloride Level 101 MEQ/L Carbon Dioxide Level 24.3 MEQ/L Anion Gap 10 MEQ/L Blood Urea Nitrogen 30 MG/DL Creatinine 1.80 MG/DL Estimat Glomerular Filtration 38 ML/MIN Rate Random Glucose 157 MG/DL Calcium Level 8.7 MG/DL Imaging Last Impressions Liver Ultrasound 01/13/17 0000 Signed Impressions: Service Date/Time: Friday, January 13, 2017 15:15 - CONCLUSION: 1. The liver is slightly echogenic which maybe due to fatty infiltration and or hepatocellular dysfunction. 2. Small right pleural effusion. 3. Small nonobstructing stone in the right kidney and right renal cyst. 4. Slight splenomegaly. 5. Possible mass versus lymph node in the region of the head of the pancreas. Jade Roman MD Head CT 01/12/1712 Signed Impressions: Service Date/Time: Thursday, January 12, 2017 00:51 - CONCLUSION: No acute intracranial abnormality. Will Campbell MD Chest X-Ray 01/12/1712 Signed Impressions: Service Date/Time: Thursday, January 12, 2017 00:28 - CONCLUSION: Cardiomegaly with probably at least mild failure. Potentially superimposed pneumonia of the right base. Will Campbell MD Renal Ultrasound 01/12/17 0000 Signed Impressions: Service Date/Time: Thursday, January 12, 2017 09:06 - CONCLUSION: No hydronephrosis. Will Duval MD Assessment and Plan Problem List: (1) New onset of congestive heart failure Assessment and Plan: very difficult patient. patient refuses OAC or ischemic cardiac work up. Severe depressed LV systolic function on TTE. Recommendations; 1. ASA 81mg PO daily 2. Cont Lopressor to 100mg PO daily 3. Cont Lasix 20mg IV BID 4. Cont Altace 1.25mg PO daily 5. Encourage out of bed and incentive spirometry 6. OK to tx to [facility] 7. Strict I&O 8. Daily weights 9. Low salt diet (2) Elevated troponin (3) Atrial fibrillation with RVR Donis Agrawal MD Jan 14, 2017 13:53
[2017-01-14] MEDS: SPIRONOLACTONE 25 MG TAB PO SCH (14:15)
[2017-01-14] MEDS ORDERED: DIATRIZOATE MEGLUM/DIATRIZOATE SOD 9 ML CUP PO ONE (19:00)
--- NOTE | 2017-01-14 22:09 | RADRPT ---
EXAM DATE/TIME: 01/14/2017 21:44 [place] COMPARISON: US ABDOMEN - LIVER, January 13, 2017, 15:15. INDICATIONS : Abdominal pain, evaluate pancreatic mass. ORAL CONTRAST: Partial prescribed oral contrast ingested. RADIATION DOSE: 15.34 CTDIvol (mGy) MEDICAL HISTORY : Hypertension. Gout. SURGICAL HISTORY : Tonsillectomy. ENCOUNTER: Initial ACUITY: 2 days PAIN SCALE: 5/10 LOCATION: All quadrants. TECHNIQUE: Volumetric scanning of the abdomen and pelvis was performed. Using automated exposure control and ad justment of the mA and/or kV according to patient size, radiation dose was kept as low as reasonably achievable to obtain optimal diagnostic quality images. DICOM format image data is available [facility] for review and comparison. FINDINGS: CT Abdomen: There are simple cysts in both kidneys the largest on the left measures 5.2 cm in size. T here are 3 separate tiny stones in the right kidney the largest measures 4 mm in size. There is no ur eteral stone and there is no hydronephrosis on either side. There is no evidence for a pancreatic mas s, however there is a mass at the level of the gastroesophageal junction abutting the lesser curvatur e of the stomach possibly a lymph node. There is a separate approximate 2.2 cm lymph node adjacent to the head of the pancreas corresponding to the mass seen on the patient's ultrasound smaller lymph no ronaldo in the brad hepatis. The spleen, pancreas, adrenals are unremarkable. There is no evidence for a ny appreciable free fluid, or bowel obstruction. Approximate 6 mm left lower lobe nodule is seen wit h a tiny right pleural effusion. The gallbladder measures 9 cm slightly distended without definite ga llstones for technique. The liver is fatty without focal lesions or technique. CT pelvis: There is no evidence for mass, abscess formation, or any significant adenopathy within the pelvis. The prostate gland is inhomogeneous and measures 4.7 x 5.5 cm in AP and transverse diameters and nonspecific. Approximate 3.2 cm ossification is present involving the left psoas muscle at muscu lotendinous junction chronic in nature. Extensive degenerative arthritis is seen in the lumbar spine and bilateral hip joints. CONCLUSION: 1. There are lymph nodes adjacent to the gastroesophageal junction, head of the pancreas and brad he patis indeterminate in regards to malignancy. Further characterization with F-[address] is sugges juan. 2. Tiny left lung base nodule and small right pleural effusion. 3. Tiny nonobstructing stones in the right kidney. Jade Roman MD on January 14, 2017 at 22:02 Board Certified Radiologist. This report was verified electronically.
[2017-01-15] VITALS (10 sets, daily range): BP systolic 119–135; BP diastolic 73–96; PULSE 86–111; RESP 14–30; TEMP 98–100.4; O2SAT 91–96
[2017-01-15 02:28] LABS: BLOOD GAS BASE EXCESS -3.8 mmol/L (-2-2); BLOOD GAS CARBOXYHEMOGLOBIN 2.1 % (0-4); BLOOD GAS HCO3 19 mmol/L (22-26); BLOOD GAS O2 HGB SATURATION 97 % (90-100); BLOOD GAS OXYGEN CONTENT 13.8 Vol % (12.0-20.0); BLOOD GAS PCO2 26 mmHg (38-42); BLOOD GAS PO2 150 mmHg (61-120); BLOOD GAS TOTAL HGB 9.9 G/DL (12.0-16.0); CRITICAL VALUE NO; LITER FLOW 4 L/M; OXYGEN DEVICE NASAL CANNULA; TEMP CORR TO 98.6
[2017-01-15 02:29] LABS: DRAW SITE LT RADIAL; NUMBER OF ARTERIAL PUNCTURES 1; STAT YES; ULNAR PULSE PRESENT
[2017-01-15] MEDS ORDERED: MORPHINE SULFATE 8 MG/ML INJ ONE ×2 (03:16→03:22)
[2017-01-15] MEDS ORDERED: NITROGLYCERIN 0.4 MG SL 25 TABS/BTL SL ONE ×2 (03:20→04:00)
[2017-01-15] MEDS ORDERED: METOPROLOL TARTRATE 5 MG/5 ML VIAL ONE (03:22)
[2017-01-15] MEDS ORDERED: MORPHINE SULFATE 4 MG/ML INJ IV STA (03:46)
[2017-01-15] MEDS ORDERED: METOPROLOL TARTRATE 5 MG/5 ML VIAL IV PUSH STA (03:46)
[2017-01-15] MEDS ORDERED: MORPHINE SULFATE 8 MG/ML INJ IV PUSH STA (03:48)
[2017-01-15] MEDS: traMADol HCL 50 MG TAB PO SCH ×2 (04:00→09:26)
[2017-01-15] MEDS ORDERED: HEPARIN-NS/PF INJ 500 ML ONE (04:26)
--- NOTE | 2017-01-15 04:40 | PD.CARD.PN ---
Assessment and Plan Problem List: (1) New onset of congestive heart failure (2) Elevated troponin (3) Atrial fibrillation with RVR Assessment and Plan Patient had chest pain and an EKG was obtained. Noted elevations in the anterior leads and a STEMI ALERT was called. On arriving, the nurse and I spoke with the patient who said that the pain was better, but that he could not take aspirin because he would bleed out. I explained that he would have to be on aspirin and plavix if an artery needed to be fixed, but he said that he cannot not take these medications and kept mentioning a familial disease. I explained that he can refuse catheterization, but needs to understand the risk of this including but not limited to further myocardial infarctions, heart failure, arrhythmias and . He understood and refuses cath, but ask that I call his for information about his "bleeding problem." Called his Zackary and explained the same situation about concern for an occluded artery and about the catheterization lab. She reiterated that he has a familial disorder and if he takes aspirin he will bleed out. 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 I explained that as far as I knew familial chylomicronemia is not associated with an increased bleeding risk , but she said that she had done years of research on it and that he has abnormal clotting. He does have an elevated INR/PT/PTT on arrival, and most likely has some bleeding diathesis. I explained to her that if we go to the catheterization lab and had to fix an artery that he would have to be on aspirin and plavix, and she said that "that would kill him." I explained that we can try to treat the bleeding if it happened, but she said that he would not take any blood thinners. I explained the risk of not going, and she understands that he is at increased risk by not going. I had the nurse talk with the to make sure she understood their decision. They both agree that they want to be on medical management of his presumed CAD/STEMI. I explained my concern about difficulty treating medically if we can not place on aspirin, but will continue on BB/MARIBELL-I/Spirolactone. Still with mild pain, 2/10, will place on nitro gtt to attempt to decrease angina. Abdoulaye Leonard DO Jan 15, 2017 04:40
[2017-01-15] MEDS ORDERED: NITROGLYCERIN-DEXTROSE INJ 250 ML IV SCH (04:45)
[2017-01-15] MEDS: SODIUM CHLORIDE 0.9% FLUSH 10 ML FLUSH IV FLUSH SCH (09:00)
[2017-01-15] MEDS: FUROSEMIDE 20 MG/2 ML VIAL IV PUSH SCH (09:00)
[2017-01-15] MEDS: SPIRONOLACTONE 25 MG TAB PO SCH (09:00)
[2017-01-15] MEDS: RAMIPRIL 1.25 MG CAP PO SCH (09:25)
[2017-01-15] MEDS: GABAPENTIN 300 MG CAP PO SCH (09:25)
[2017-01-15] MEDS: DILTIAZEM HCL 30 MG TAB PO SCH ×2 (09:25→13:00)
[2017-01-15] MEDS: METOPROLOL TARTRATE 100 MG TAB PO SCH (09:25)
--- NOTE | 2017-01-15 09:57 | PD.CARD.PN ---
Subjective Subjective Remarks overnight events noted chest pain, ekg changes, patient refused cath wants to leave AMA Objective Medications Current Medications Medications (Trade) Dose Ordered Sig/Royce Route Start Time Stop Time Status Last Admin (Cardizem Inj/NS Inj) 125 ml @ 0 mls/hr TITRATE IV 01/12/17 00:15 01/12/17 01:23 (NS Flush) 2 ml UNSCH PRN IV FLUSH 01/12/17 02:45 (NS Flush) 2 ml BID IV FLUSH 01/12/17 09:00 01/14/17 21:29 (Narcan Inj) 0.4 mg UNSCH PRN IV 01/12/17 02:45 (Cardizem) 30 mg QID PO 01/12/17 09:00 01/15/17 09:25 (Ultram) 50 mg Q6H PO 01/12/17 10:00 01/15/17 09:26 (Lopressor) 100 mg Q12HR PO 01/13/17 21:00 01/15/17 09:25 (Lasix Inj) 20 mg BID@09,18 IV PUSH 01/13/17 18:00 01/14/17 08:23 (Altace) 1.25 mg DAILY PO 01/13/17 10:45 01/15/17 09:25 (Aldactone) 25 mg DAILY PO 01/14/17 14:15 01/14/17 14:15 Gabapentin 600 mg 600 mg BID PO 01/14/17 21:00 01/15/17 09:25 (Nitroglycerin-Dextrose Inj) 250 ml @ 0 mls/hr TITRATE IV 01/15/17 04:45 01/15/17 05:30 Vital Signs / I&O Vital Signs Date Time Temp Pulse Resp B/P Pulse Ox O2 Delivery O2 Flow Rate FiO2 01/15/17 06:00 106 01/15/17 04:00 98.0 111 14 135/96 96 01/15/17 04:00 111 01/15/17 03:30 107 01/15/17 02:00 103 01/15/17 00:00 100.4 97 30 125/73 91 01/15/17 00:00 97 01/14/17 22:00 113 01/14/17 20:00 104 01/14/17 20:00 99.8 104 26 126/81 68 01/14/17 18:00 88 01/14/17 16:00 98.8 20 16 143/98 95 01/14/17 16:00 88 01/14/17 14:00 102 01/14/17 12:00 88 01/14/17 12:00 98.2 92 20 145/92 94 01/14/17 10:00 99 I/O 01/14/17 01/14/17 01/14/17 01/15/17 01/15/17 01/15/17 07:00 15:00 23:00 07:00 15:00 23:00 Intake Total 500 ml 560 ml 480 ml 240 ml Output Total 200 ml 500 ml 300 ml 100 ml Balance 300 ml 60 ml 180 ml 140 ml Intake Oral 500 ml 560 ml 480 ml 240 ml Output Urine Total 200 ml 500 ml 300 ml 100 ml # Bowel Movements 4 3 2 Physical Exam GENERAL: Well-nourished, well-developed patient. SKIN: Warm and dry. HEAD: Normocephalic. EYES: No scleral icterus. No injection or drainage. NECK: Supple, trachea midline. No JVD or lymphadenopathy. CARDIOVASCULAR:Irr Irr without murmurs, gallops, or rubs. RESPIRATORY: Breath sounds equal bilaterally. No accessory muscle use. GASTROINTESTINAL: Abdomen soft, non-tender, nondistended. EXTREMITIES: No cyanosis, or edema. NEUROLOGICAL: Awake, alert, and oriented x 3. Non-focal. Laboratory Laboratory Tests Test 01/15/17 01/15/17 02:09 03:10 Blood Gas Puncture Site LT RADIAL Blood Gas Patient Temperature 98.6 Blood Gas HCO3 19 mmol/L Blood Gas Base Excess -3.8 mmol/L Blood Gas Oxygen Saturation 97 % Arterial Blood pH 7.49 Arterial Blood Partial 26 mmHg Pressure CO2 Arterial Blood Partial 150 mmHg Pressure O2 Arterial Blood Oxygen Content 13.8 Vol % Arterial Blood 2.1 % Carboxyhemoglobin Arterial Blood Methemoglobin 1.0 % Blood Gas Hemoglobin 9.9 G/DL Oxygen Delivery Device NASAL CANNULA Blood Gas Liter Flow 4 L/M Troponin I 0.20 NG/ML Imaging Last Impressions Abdomen/Pelvis CT 01/14/17 0000 Signed Impressions: Service Date/Time: January 21:44 - CONCLUSION: 1. There are lymph nodes adjacent to the gastroesophageal junction, head of the pancreas and brad hepatis indeterminate in regards to malignancy. Further characterization with F-[address] is suggested. 2. Tiny left lung base nodule and small right pleural effusion. 3. Tiny nonobstructing stones in the right kidney. Jade Roman MD Liver Ultrasound 01/13/17 0000 Signed Impressions: Service Date/Time: Friday, January 13, 2017 15:15 - CONCLUSION: 1. The liver is slightly echogenic which maybe due to fatty infiltration and or hepatocellular dysfunction. 2. Small right pleural effusion. 3. Small nonobstructing stone in the right kidney and right renal cyst. 4. Slight splenomegaly. 5. Possible mass versus lymph node in the region of the head of the pancreas. Jade Roman MD Head CT 01/12/1712 Signed Impressions: Service Date/Time: Thursday, January 12, 2017 00:51 - CONCLUSION: No acute intracranial abnormality. Will Campbell MD Chest X-Ray 01/12/1712 Signed Impressions: Service Date/Time: Thursday, January 12, 2017 00:28 - CONCLUSION: Cardiomegaly with probably at least mild failure. Potentially superimposed pneumonia of the right base. Will Campbell MD Renal Ultrasound 01/12/17 0000 Signed Impressions: Service Date/Time: Thursday, January 12, 2017 09:06 - CONCLUSION: No hydronephrosis. Will Duval MD Assessment and Plan Problem List: (1) New onset of congestive heart failure Assessment and Plan: very difficult patient. patient refuses OAC or ischemic cardiac work up. Severe depressed LV systolic function on TTE. Recommendations; 1. ASA 81mg PO daily 2. Cont Lopressor to 100mg PO daily 3. Cont Lasix 20mg IV BID 4. Cont Altace 1.25mg PO daily 7. Strict I&O 8. Daily weights 9. Low salt diet (2) Elevated troponin (3) Atrial fibrillation with RVR Donis Agrawal MD Jan 15, 2017 09:56
--- NOTE | 2017-01-15 12:59 | HHI.PR ---
Subjective Remarks Patient had chest pain this morning, discussed with cardiology, patient however still refusing anticoagulation and cardiac catheterization. Patient cannot leave and get discharged from the hospital. Discussed with patient, no chest pain presently, but vehemently refusing some medications including cardiac catheterization. is agreeable with the patient's position. They are open to the idea of hospice, would like to talk to palliative care. Objective Vitals Vital Signs Date Time Temp Pulse Resp B/P Pulse Ox O2 Delivery O2 Flow Rate FiO2 01/15/17 10:10 93 Nasal Cannula 4.00 01/15/17 06:00 106 01/15/17 04:00 98.0 111 14 135/96 96 01/15/17 04:00 111 01/15/17 03:30 107 01/15/17 02:00 103 01/15/17 00:00 100.4 97 30 125/73 91 01/15/17 00:00 97 01/14/17 22:00 113 01/14/17 20:00 104 01/14/17 20:00 99.8 104 26 126/81 68 01/14/17 18:00 88 01/14/17 16:00 98.8 20 16 143/98 95 01/14/17 16:00 88 01/14/17 14:00 102 I/O 01/14/17 01/14/17 01/14/17 01/15/17 01/15/17 01/15/17 06:59 14:59 22:59 06:59 14:59 22:59 Intake Total 500 ml 560 ml 480 ml 240 ml Output Total 200 ml 500 ml 300 ml 100 ml Balance 300 ml 60 ml 180 ml 140 ml Intake Oral 500 ml 560 ml 480 ml 240 ml Output Urine Total 200 ml 500 ml 300 ml 100 ml # Bowel Movements 4 3 2 Result Diagram: 01/14/17 0541 01/14/17 0541 Imaging Last Impressions Abdomen/Pelvis CT 01/14/17 0000 Signed Impressions: Service Date/Time: January 21:44 - CONCLUSION: 1. There are lymph nodes adjacent to the gastroesophageal junction, head of the pancreas and brad hepatis indeterminate in regards to malignancy. Further characterization with F-[address] is suggested. 2. Tiny left lung base nodule and small right pleural effusion. 3. Tiny nonobstructing stones in the right kidney. Jade Roman MD Liver Ultrasound 01/13/17 Signed Impressions: Service Date/Time: Friday, January 13, 2017 15:15 - CONCLUSION: 1. The liver is slightly echogenic which maybe due to fatty infiltration and or hepatocellular dysfunction. 2. Small right pleural effusion. 3. Small nonobstructing stone in the right kidney and right renal cyst. 4. Slight splenomegaly. 5. Possible mass versus lymph node in the region of the head of the pancreas. Jade Roman MD Head CT 01/12/1712 Signed Impressions: Service Date/Time: Thursday, January 12, 2017 00:51 - CONCLUSION: No acute intracranial abnormality. Will Campbell MD Chest X-Ray 01/12/1712 Signed Impressions: Service Date/Time: Thursday, January 12, 2017 00:28 - CONCLUSION: Cardiomegaly with probably at least mild failure. Potentially superimposed pneumonia of the right base. Will Campbell MD Renal Ultrasound 01/12/17 Signed Impressions: Service Date/Time: Thursday, January 12, 2017 09:06 - CONCLUSION: No hydronephrosis. Will Duval MD Objective Remarks GENERAL: Well-nourished, well-developed patient in NAD. at bedside. SKIN: Warm and dry. No rash. CARDIOVASCULAR: Irregularly irregular rhythm. No murmur appreciated. RESPIRATORY: No accessory muscle use. Clear to auscultation. Breath sounds equal bilaterally. GASTROINTESTINAL: Abdomen soft, non-tender, nondistended. Normoactive bowel sounds x4. MUSCULOSKELETAL: No obvious deformities. Trace edema NEUROLOGICAL: Awake and alert. No obvious cranial nerve deficits. Motor grossly within normal limits. 5/5 muscle strength in bilateral upper and lower extremities. Normal speech. A/P Assessment and Plan 66-year-old male past medical history of hypertension, hyperlipidemia type I, peripheral neuropathy, and noncompliance who presented with fatigue due to atrial fibrillation with RVR Atrial fibrillation with RVR -New-onset. Patient does not report any history of atrial fibrillation but he is a poor historian. Only symptom is fatigue. -Labs and imaging reviewed significant for mild failure, elevated BNP, and mild elevated troponin 0.3 to. TSH WNL. -Echo showed global left ventricular dysfunction with ejection fraction of 30 %, moderate mitral/tricuspid valve regurgitation, moderate pulmonary hypertension. --s/p cardizem gtt per cardiology. Off Cardizem drip now, increase Cardizem. Continue metoprolol -Patient refused any aspirin or anticoagulation due to hyperchylomicronemia type I. Allegedly, this is been tested genetically. Patient refusing anticoagulation, agrees. 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 - Start Altace 1.25 mg PO daily and Lasix 20 mg IV BID per cardiology. Refusing Aldactone. Transition to oral Lasix. Discussed with cardiology, patient needs cardiac catheterization however patient is refusing. Consult palliative care, might need to transition to hospice. Renal insufficiency -Unsure if this is acute, chronic, or acute on chronic. There is no baseline for comparison. -Creatinine has been stable. Most likely this is chronic renal disease. -Renal ultrasound is negative for any acute disease process. -Strict ins and outs. Continue to monitor. -Avoid nephrotoxins. Peripheral neuropathy/chronic sciatica pain -Continue home medication tramadol and gabapentin. Hypertension, uncontrolled -Patient is noncompliant medication. -He is on metoprolol at home. Continue metoprolol 100 mg PO daily per cardiology. Mild elevated LFTs -LFTs reviewed, unremarkable except for mild elevation of AST. Ultrasound of liver reviewed and showing, the liver is slightly echogenic which maybe due to fatty infiltration and or hepatocellular dysfunction. Small right pleural effusion. Small nonobstructing stone in the right kidney and right renal cyst. Slight splenomegaly. Possible mass versus lymph node in the region of the head of the pancreas. Pancreatic mass versus lymph nodes-patient has mildly elevated LFTs, CT scan showed lymph nodes adjacent to the gastroesophageal junction and head of the pancreas, indeterminate in regards to malignancy. Consult palliative care. Discussed with patient, patient refuses any further diagnostics or consultation with GI or oncology. Patient would like to go home and go on hospice if possible. DVT prophylaxis: SCDs. Charly Kuo MD Jan 15, 2017 12:59
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
[2017-01-15] MEDS ORDERED: HYDROmorphone HCL PF 1 MG/ML VIAL IV PUSH PRN (17:00)
[2017-01-15] MEDS ORDERED: ALTA1.256 PO (17:05)
[2017-01-15] MEDS ORDERED: FURO1TAB60 PO (17:05)
[2017-01-15] MEDS ORDERED: METO-338 PO (17:05)
[2017-01-15] MEDS ORDERED: DILT31TA PO (17:05)
--- NOTE | 2017-01-15 17:11 | HHI.DS ---
Discharge Summary Admission Date Jan 12, 2017 at 02:39 Discharge Date: Jan 15, 2017 Admitting Diagnosis Afib with RVR, new onset CHF (1) Elevated troponin ICD Code: R74.8 Diagnosis: Principal (2) Atrial fibrillation with RVR ICD Code: I48.91 Diagnosis: Principal (3) Cardiomyopathy ICD Code: I42.9 Diagnosis: Secondary (4) Left ventricular dysfunction ICD Code: I51.9 Diagnosis: Secondary (5) NSTEMI (non-ST elevated myocardial infarction) ICD Code: I21.4 Diagnosis: Principal Procedures None Brief History - From Admission This is a 66 y/o M with a hx of hypertension, peripheral neuropathy, hyperlipidemia type I, and noncompliance who presented with fatigue. Patient stated for the past week has been very fatigued. He stated he was not able to get of bed. Denies any chest pain, shortness of breathing, palpitation, lightheadedness, or dizziness. He stated it was so severe that he went to the emergency department. Patient stated that he was diagnosed with malignant hypertension and that he was put on metoprolol 100 mg by mouth twice a day. He stated that he is very "bad" at taking his blood pressure medication. He stated that he last took his metoprolol last week. Patient denies any history of atrial fibrillation or any cardiovascular disease except for hypertension. Patient stated that he cannot be on aspirin or any anticoagulation due to his history of hypertension hyperlipidemia type I. Patient stated that he bleeds easily so he will not take any aspirin or anticoagulation. 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 CBC/BMP: 01/14/17 0541 01/14/17 0541 Significant Findings Laboratory Tests Test 01/13/17 01/14/17 01/15/17 01/15/17 04:43 05:41 02:09 03:10 Hemoglobin 9.8 GM/DL 9.3 GM/DL (13.0-17.0) (13.0-17.0) Hematocrit 31.8 % 29.3 % (39.0-51.0) (39.0-51.0) Mean Corpuscular Volume 68.1 FL 68.1 FL (80.0-100.0) (80.0-100.0) Mean Corpuscular Hemoglobin 21.0 PG 21.6 PG (27.0-34.0) (27.0-34.0) Mean Corpuscular Hemoglobin 30.8 % 31.8 % Concent (32.0-36.0) (32.0-36.0) Red Cell Distribution Width 22.4 % 22.7 % (11.6-17.2) (11.6-17.2) Neutrophils (%) (Auto) 72.0 % (16.0-70.0) Eosinophils (%) (Auto) 4.1 % (0.0-4.0) Platelet Morphology Comment ENLARGED (NORMAL) Sodium Level 133 MEQ/L 135 MEQ/L (136-145) (136-145) Blood Urea Nitrogen 27 MG/DL (7-18) 30 MG/DL (7-18) Creatinine 1.83 MG/DL 1.80 MG/DL (0.60-1.30) (0.60-1.30) Estimat Glomerular Filtration 37 ML/MIN (>89) 38 ML/MIN (>89) Rate Random Glucose 115 MG/DL 157 MG/DL (74-106) (74-106) Calcium Level 8.4 MG/DL (8.5-10.1) Aspartate Amino Transf 53 U/L (15-37) (AST/SGOT) Albumin 2.6 GM/DL (3.4-5.0) Red Blood Count 4.30 MIL/MM3 (4.50-5.90) Blood Gas HCO3 19 mmol/L (22-26) Blood Gas Base Excess -3.8 mmol/L (-2-2) Arterial Blood pH 7.49 (7.380-7.420) Arterial Blood Partial 26 mmHg (38-42) Pressure CO2 Arterial Blood Partial 150 mmHg Pressure O2 (61-120) Blood Gas Hemoglobin 9.9 G/DL (12.0-16.0) Troponin I 0.20 NG/ML (0.02-0.05) PE at Discharge GENERAL: Well-nourished, well-developed patient in NAD. at bedside. SKIN: Warm and dry. No rash. CARDIOVASCULAR: Irregularly irregular rhythm. No murmur appreciated. RESPIRATORY: No accessory muscle use. Clear to auscultation. Breath sounds equal bilaterally. GASTROINTESTINAL: Abdomen soft, non-tender, nondistended. Normoactive bowel sounds x4. MUSCULOSKELETAL: No obvious deformities. Trace edema NEUROLOGICAL: Awake and alert. No obvious cranial nerve deficits. Motor grossly within normal limits. 5/5 muscle strength in bilateral upper and lower extremities. Normal speech. Hospital Course This is a 66-year-old male past medical history of hypertension, hyperlipidemia type I, peripheral neuropathy, and noncompliance who presented with fatigue due to atrial fibrillation with RVR. Upon admission, the patient was transferred to the intensive care unit for Cardizem drip. Cardizem drip was started. Echocardiogram was done, showed an ejection fraction of 30%. Patient was started on diuretics including Lasix but patient has been refusing spironolactone. Cardiology was consulted. Patient was also started metoprolol. Despite low ejection fraction and recommendation for anticoagulation for atrial fibrillation, the and the patient refuses to be on aspirin or any anticoagulation due to having hyperchylomicronemia type I. Patient also had an episode of chest pain with EKG changes, likely non-ST elevated myocardial infarction. Cardiology saw the patient again and recommending cardiac catheterization but the patient refused. Patient had LFT elevation, an ultrasound of the liver was done, showed possible lymph node or pancreatic mass. CT scan of the abdomen revealed similar consolidation in rule out pancreatic cancer. The patient and patient's refused any further diagnostics including consultation with GI and hematology or oncology. They agreed to palliative care consult, patient was made DNR/DNI, patient decided to go on hospice. Discussed with cardiology and palliative care. Also discussed with hospice nurse, patient and patient's Pt Condition on Discharge: Guarded Discharge Disposition: Hospice/Med Facility Discharge Time: > 30 minutes Discharge Instructions DIET: Follow Instructions for: Heart Healthy Diet Activities you can perform: Regular-No Restrictions New Medications: Furosemide (Lasix) 40 Mg Tab 40 MG PO BID chf #60 Ref 0 TAB Diltiazem (Cardizem) 30 Mg Tab 60 MG PO QID afib #120 TAB Metoprolol Tartrate (Lopressor) 100 Mg Tab 100 MG PO Q12HR heart #60 TAB Ramipril (Altace) 1.25 Mg Cap 1.25 MG PO DAILY htn #30 CAP Continued Medications: Gabapentin (Gabapentin) 600 Mg Tab 600 MG PO QID Ref 0 TAB Tramadol (Tramadol) 50 Mg Tab 50 MG PO Q6H PRN PAIN Ref 0 TAB Charly Kuo MD Jan 15, 2017 17:11
--- NOTE | 2017-01-16 10:54 | EKG ---
Date Performed: 01/15/2017 Time Performed: 02:09:06 PTAGE: 66 years EKG: CONSIDER ACUTE ST ELEVATION [place] Atrial fibrillation. Anteroseptal ST elevation, CONS IDER ACUTE INFARCT Inferior ST-T changes are nonspecific Abnormal ECG PREVIOUS TRACING : 01/12/2017 11.52 DOCTOR: John López Interpretating Date/Time 01/16/2017 10:51:59
== END 2017-01-15 17:40 | disposition hospice, inpatient (51) | DRG 281 ==
LOC: NEPC 23:50 → NEDA 01-12 02:39 → HIME 01-12 04:20
PROVIDERS: ADMIT Hospitalist; ATTEND Hospitalist
DX: I48.1 Persistent atrial fibrillation (principal); I21.4 Non-ST elevation (NSTEMI) myocardial infarction; N17.9 Acute kidney failure, unspecified; I13.0 Hypertensive heart and chronic kidney disease with heart failure and stage 1 through stage 4 chronic kidney disease, or unspecified chronic kidney disease; I50.22 Chronic systolic (congestive) heart failure; R55 Syncope and collapse; I42.9 Cardiomyopathy, unspecified; I27.2 Other secondary pulmonary hypertension; M54.30 Sciatica, unspecified side; M10.9 Gout, unspecified; N18.9 Chronic kidney disease, unspecified; N28.1 Cyst of kidney, acquired; G62.9 Polyneuropathy, unspecified; Z91.19 Patient's noncompliance with other medical treatment and regimen; G89.29 Other chronic pain; Z87.820 Personal history of traumatic brain injury; R42 Dizziness and giddiness; R11.2 Nausea with vomiting, unspecified; I08.1 Rheumatic disorders of both mitral and tricuspid valves; Z66 Do not resuscitate; Z51.5 Encounter for palliative care; N20.0 Calculus of kidney; K76.0 Fatty (change of) liver, not elsewhere classified; R59.9 Enlarged lymph nodes, unspecified; E78.3 Hyperchylomicronemia; Z53.29 Procedure and treatment not carried out because of patient's decision for other reasons
CPT/HCPCS: 36600; 70450; 71010; 74176; 76705; 76775; 80048; 80053; 80076; 82550; 82552; 82805; 83605; 83690; 83735; 83880; 84443; 84484; 85025; 85027; 85610; 85730; 87040; 93005; 93306; 96374; 96375; 99291; J0456; J0696; J1644; J1940; J2270; J7040; J7050; Q9963